=== PATIENT | male | born 1955 | race Two or more races ===

== ENCOUNTER 2024-10-28 03:19 | Inpatient (IN) | payer MEDICARE ==
--- NOTE | 2024-10-28 04:08 | ED ---
General Adult HPI - General Chief complaint: Chest Pain Stated complaint: Chest Pain Time Seen by Provider: 10/28/24 03:28 Source: patient, RN notes reviewed, old records reviewed Mode of arrival: ambulatory Limitations: no limitations - History of Present Illness Initial comments: 68-year-old male presenting for evaluation of chest pain. Patient has had exertional chest pain over the past several days. This morning the pain woke him from sleep. He describes this as a central chest tightness. No associated vomiting or diaphoresis. No prior history of CAD. Patient is a diabetic with history of hypertension. - Related Data Allergies Allergy/AdvReac Type Severity Reaction Status Date / Time No Known Allergies Allergy Verified 10/28/24 03:32 Review of Systems ROS Statement: Those systems with pertinent positive or pertinent negative responses have been documented in the HPI. ROS Other: All systems not noted in ROS Statement are negative. Past Medical History Past Medical History: Diabetes Mellitus History of Any Multi-Drug Resistant Organisms: None Reported Past Surgical History: No Surgical Hx Reported Past Psychological History: No Psychological Hx Reported Smoking Status: Never smoker Past Alcohol Use History: Occasional Past Drug Use History: None Reported General Exam Limitations: no limitations General appearance: alert, in no apparent distress Head exam: Present: atraumatic, normocephalic Eye exam: Present: normal appearance, PERRL ENT exam: Present: normal exam Neck exam: Present: normal inspection. Absent: tenderness, meningismus Respiratory exam: Present: normal lung sounds bilaterally. Absent: respiratory distress, wheezes Cardiovascular Exam: Present: regular rate, normal rhythm GI/Abdominal exam: Present: soft. Absent: distended, tenderness Extremities exam: Present: normal inspection Neurological exam: Present: alert, oriented X3 Psychiatric exam: Present: normal affect, normal mood Skin exam: Present: warm, dry, intact. Absent: cyanosis, diaphoretic Course Vital Signs 10/28/24 03:26 Temperature 97.9 F Pulse Rate 66 Respiratory 18 Rate Blood Pressure 120/64 O2 Sat by Pulse 100 Oximetry Medical Decision Making - Medical Decision Making Was pt. sent in by a medical professional or institution (, PA, BAND NAILER, urgent care, hospital, or [place] [facility] [place] facility...) When possible be specific @ -No Did you speak to anyone other than the patient for history (EMS, parent, family, police, friend...)? What history was obtained from this source @ -No Did you review nursing and triage notes (agree or disagree)? Why? @ -I reviewed and agree with nursing and triage notes Were old charts reviewed (outside hosp., previous admission, EMS record, old EKG, old radiological studies, urgent care reports/EKG's, [place] [facility] facility records)? Report findings @ -No old charts were reviewed Differential Chest Pain: Stable Angina, Unstable Angina, STEMI, NSTEMI Aortic Dissection, Pneumothorax, Musculoskeletal, Esophageal Spasm GERD, Cholecystitis, Pancreatitis, Zoster, this is not meant to be an all-inclusive list. EKG interpreted by me (3pts min.). @ -Sinus rhythm rate of [address] segment elevation, ST segment depression and T wave inversion in aVL. [place] interval 193, QRS duration 102, QTc 427 X-rays interpreted by me (1pt min.). @Chest x-ray negative for acute cardiopulmonary findings. CT interpreted by me (1pt min.). @ -None done U/S interpreted by me (1pt. min.). @ -None done What testing was considered but not performed or refused? (CT, X-rays, U/S, labs)? Why? @ -None What meds were considered but not given or refused? Why? @ -None Did you discuss the management of the patient with other professionals (professionals i.e. , PA, BAND NAILER, lab, RT, psych nurse, social service liaison, technical service rep, teacher, special weapons unit officer, case planner)? Give summary @EM, Dr. Alvarado, and cardiology Dr. Hernadez Was smoking cessation discussed for >3mins.? @ -No Was critical care preformed (if so, how long)? @ -[Yes, 35 minutes Were there social determinants of health that impacted care today? How? (Homelessness, low income, unemployed, alcoholism, drug addiction, transportation, low edu. Level, literacy, decrease access to med. care, shelter, rehab)? @ -No Was there de-escalation of care discussed even if they declined (Discuss DNR or withdrawal of care, Hospice)? DNR status @ -No What co-morbidities impacted this encounter? (DM, HTN, Smoking, COPD, CAD, Cancer, CVA, ARF, Chemo, Hep., AIDS, mental health diagnosis, sleep apnea, morbid obesity)? @ -Diabetes Was patient admitted / discharged? Hospital course, mention meds given and route, prescriptions, significant lab abnormalities, going to OR and other pertinent info. @ -68-year-old male with history of diabetes presenting with exertional chest pain over the past several days and chest pain that woke the patient from sleep this evening. Pain is typical in nature. EKG is negative for ST segment elevation. Chest x-ray is clear. Patient has a normal CBC, normal CMP, initial troponin is 1. Patient's symptoms are consistent with non-ST segment elevated AK. Patient is started on heparin, given aspirin in the emergency department. Admitted to internal medicine with cardiology on consult. Undiagnosed new problem with uncertain prognosis? @ -No Drug Therapy requiring intensive monitoring for toxicity (Heparin, Nitro, Insulin, Cardizem)? @ -No Were any procedures done? @ -No Diagnosis/symptom? @NSTEMI Acute, or Chronic, or Acute on Chronic? @ -Acute Uncomplicated (without systemic symptoms) or Complicated (systemic symptoms)? @ -[Complicated Side effects of treatment? @ -No Exacerbation, Progression, or Severe Exacerbation? @ -No Poses a threat to life or bodily function? How? (Chest pain, USA, AK, pneumonia, PE, COPD, DKA, ARF, appy, cholecystitis, CVA, Diverticulitis, Homicidal, Suicidal, threat to staff... and all critical care pts) @ -Yes, ACS - Lab Data Result diagrams: 10/28/24 03:56 10/28/24 03:56 Lab Results 10/28/24 10/28/24 10/28/24 Range/Units 03:56 03:56 03:56 WBC 9.50 (4.50-10.00) 10*3/uL RBC 4.87 (4.40-5.60) 10*6/uL Hgb 13.9 (13.0-17.0) g/dL Hct 43.0 (39.6-50.0) % MCV 88.3 (80.0-97.0) fL MCH 28.5 (27.0-32.0) pg MCHC 32.3 (32.0-37.0) g/dL Plt Count 233 (140-440) 10*3/uL MPV 10.4 (9.5-12.2) fL Immature Gran % (Auto) 0.3 % Neutrophils % 65.0 % Lymphocytes % 20.8 % Monocytes % 6.6 % Eosinophils % 7.1 % Basophils % 0.2 % Immature Gran # 0.03 (0.00-0.04) 10*3/uL Neutrophils # 6.17 (1.80-7.70) 10*3/uL Lymphocytes # 1.98 (0.90-5.00) 10*3/uL Monocytes # 0.63 (0.20-1.00) 10*3/uL Eosinophils # 0.67 H (0.04-0.35) 10*3/uL Basophils # 0.02 (0.00-0.10) 10*3/uL PT 10.7 (10.0-12.5) sec INR 1.0 (<1.2) APTT 23.7 (22.0-30.0) sec Sodium 141 (137-145) mmol/L Potassium 4.2 (3.5-5.1) mmol/L Chloride 106 (98-107) mmol/L Carbon Dioxide 22 (22-30) mmol/L Anion Gap 13 mmol/L BUN 12 (9-20) mg/dL Creatinine 0.62 L (0.66-1.25) mg/dL Est GFR (CKD-EPI)AfAm >90 (>60 ml/min/1.73 sqM) Est GFR (CKD-EPI)NonAf >90 (>60 ml/min/1.73 sqM) Glucose 148 H (74-99) mg/dL Calcium 9.3 (8.4-10.2) mg/dL Magnesium 1.9 (1.6-2.3) mg/dL Total Bilirubin 0.6 (0.2-1.3) mg/dL AST 37 (17-59) U/L ALT 24 (4-49) U/L Alkaline Phosphatase 115 (38-126) U/L Troponin I (0.000-0.034) ng/mL Total Protein 7.2 (6.3-8.2) g/dL Albumin 4.2 (3.5-5.0) g/dL 10/28/24 Range/Units 03:56 WBC (4.50-10.00) 10*3/uL RBC (4.40-5.60) 10*6/uL Hgb (13.0-17.0) g/dL Hct (39.6-50.0) % MCV (80.0-97.0) fL MCH (27.0-32.0) pg MCHC (32.0-37.0) g/dL Plt Count (140-440) 10*3/uL MPV (9.5-12.2) fL Immature Gran % (Auto) % Neutrophils % % Lymphocytes % % Monocytes % % Eosinophils % % Basophils % % Immature Gran # (0.00-0.04) 10*3/uL Neutrophils # (1.80-7.70) 10*3/uL Lymphocytes # (0.90-5.00) 10*3/uL Monocytes # (0.20-1.00) 10*3/uL Eosinophils # (0.04-0.35) 10*3/uL Basophils # (0.00-0.10) 10*3/uL PT (10.0-12.5) sec INR (<1.2) APTT (22.0-30.0) sec Sodium (137-145) mmol/L Potassium (3.5-5.1) mmol/L Chloride (98-107) mmol/L Carbon Dioxide (22-30) mmol/L Anion Gap mmol/L BUN (9-20) mg/dL Creatinine (0.66-1.25) mg/dL Est GFR (CKD-EPI)AfAm (>60 ml/min/1.73 sqM) Est GFR (CKD-EPI)NonAf (>60 ml/min/1.73 sqM) Glucose (74-99) mg/dL Calcium (8.4-10.2) mg/dL Magnesium (1.6-2.3) mg/dL Total Bilirubin (0.2-1.3) mg/dL AST (17-59) U/L ALT (4-49) U/L Alkaline Phosphatase (38-126) U/L Troponin I 1.070 H* (0.000-0.034) ng/mL Total Protein (6.3-8.2) g/dL Albumin (3.5-5.0) g/dL Critical Care Time Critical Care Time: Yes Total Critical Care Time: 35 Disposition Clinical Impression: Acute non-ST elevation myocardial infarction (NSTEMI) Disposition: ADMITTED IP TO THIS HOSP Condition: Stable Is patient prescribed a controlled substance at d/c from ED?: No Referrals: None,Stated [Primary Care Provider] - 1-2 days Time of Disposition: 06:41
[2024-10-28 04:33] LABS: Basophils # (A) 0.02 10*3/uL (0.00-0.10); Basophils % (A) 0.2 %; Eosinophils # (A) 0.67 10*3/uL (0.04-0.35); Eosinophils % (A) 7.1 %; HCT 43.0 % (39.6-50.0); HGB 13.9 g/dL (13.0-17.0); Lymphocytes # (A) 1.98 10*3/uL (0.90-5.00); Lymphocytes % (A) 20.8 %; MCH 28.5 pg (27.0-32.0); MCHC 32.3 g/dL (32.0-37.0); MCV 88.3 fL (80.0-97.0); Monocytes # (A) 0.63 10*3/uL (0.20-1.00); Monocytes % (A) 6.6 %; Neutrophils # (A) 6.17 10*3/uL (1.80-7.70); Neutrophils % (A) 65.0 %; Platelet Count 233 10*3/uL (140-440); RBC 4.87 10*6/uL (4.40-5.60); RDW 13.2 % (11.5-14.5); WBC 9.50 10*3/uL (4.50-10.00)
[2024-10-28 04:41] LABS: ALT 24 U/L (4-49); AST 37 U/L (17-59); African American GFR (CKD) >90 (>60 ml/min/1.73 sqM); Albumin 4.2 g/dL (3.5-5.0); Alkaline Phosphatase 115 U/L (38-126); Anion Gap 13 mmol/L; Blood Urea Nitrogen 12 mg/dL (9-20); Calcium 9.3 mg/dL (8.4-10.2); Carbon Dioxide 22 mmol/L (22-30); Chloride 106 mmol/L (98-107); Glucose 148 mg/dL (74-99); Magnesium 1.9 mg/dL (1.6-2.3); Non-African American GFR(CKD) >90 (>60 ml/min/1.73 sqM); Potassium 4.2 mmol/L (3.5-5.1); Sodium 141 mmol/L (137-145); Total Protein 7.2 g/dL (6.3-8.2)
--- NOTE | 2024-10-28 05:13 | XR ---
EXAM: XR Chest, 2 Views CLINICAL HISTORY: ITS.REASON XR Reason: Chest Pain TECHNIQUE: Frontal and lateral views of the chest. COMPARISON: No relevant prior studies available. FINDINGS: Lungs: Unremarkable. No consolidation. Pleural space: Unremarkable. No pneumothorax. Heart: Unremarkable. No cardiomegaly. Mediastinum: Unremarkable. Normal mediastinal contour. Bones/joints: Degenerative changes are seen within the left shoulder and spine. No acute fracture. IMPRESSION: No acute findings in the chest.
[2024-10-28 05:14] LABS: INR 1.0 (<1.2); Partial Thromboplastin Time 23.7 sec (22.0-30.0); Prothrombin Time 10.7 sec (10.0-12.5)
[2024-10-28] MEDS ORDERED: HEPARIN SODIUM 1,000 UN/ML (10ML VL) IV PRN (06:06)
[2024-10-28] MEDS: HEPARIN SODIUM 1,000 UN/ML (10ML VL) IV ONE (06:20)
[2024-10-28] MEDS: HEPARIN SODIUM,PORCINE/D5W 25,000 UNIT in EMPTY BAG 1 BAG IV SCH (06:21)
[2024-10-28] MEDS: ASPIRIN 325 MG TAB PO STA ×2 (06:22→07:57)
[2024-10-28] MEDS ORDERED: NITROGLYCERIN SL TABS 0.4 MG TAB SUBLINGUAL PRN ×2 (06:38→07:38)
[2024-10-28] MEDS ORDERED: ALPRAZolam 0.5 MG TAB PO PRN (07:38)
[2024-10-28] MEDS ORDERED: ALPRAZolam 0.25 MG TAB PO PRN (07:38)
[2024-10-28] MEDS: ATORVASTATIN 80 MG TAB PO STA (07:57)
[2024-10-28] MEDS: ATORVASTATIN 80 MG TAB PO SCH (08:01)
[2024-10-28] MEDS: NITROGLYCERIN OINT 1 INCH/GM PACKET TOPICAL SCH (08:01)
[2024-10-28 10:14] LABS: Glucose,Whole Blood 116 mg/dL (70-110)
[2024-10-28] MEDS: SODIUM CHLORIDE 0.9% 1,000 ML IV ONE (10:50)
[2024-10-28] MEDS: HEPARIN SODIUM,PORCINE 10,000 UNIT in SODIUM CHLORIDE 0.9% 1,000 ML IRRIGATION PRN (10:50)
[2024-10-28] MEDS: HEPARIN SODIUM,PORCINE (1 ML) 2,500 UNIT in SODIUM CHLORIDE 0.9% 250 ML IRRIGATION PRN (10:50)
--- NOTE | 2024-10-28 10:55 | P.CRDCN ---
History of Present Illness Consult date: 10/28/24 Reason for Consult (text): NSTEMI History of present illness: This is a 68-year-old male patient with no previous cardiac history and does not follow with a director instrumentation. He has a past medical history of diabetes and hyperlipidemia. We have been asked to evaluate the patient for NSTEMI. Patient states that he has been having chest pain when he exerts himself for the past 2 days. It became worse yesterday and he decided to come into the hospital for evaluation. He has been started on heparin drip and found to have elevated troponins. Recommendations for cardiac catheterization have been discussed with the patient and he is agreeable to move forward today. Blood pressure 131/73, heart rate 68, pulse ox 99% on room air. Patient is seen today in the emergency center waiting for a bed on the cardiac stepdown unit. -EKG: Sinus rhythm with T wave inversions in I and aVL -Chest x-ray: No acute process. -Laboratory studies: Troponin 1.07, 1.19, creatinine 0.62, potassium 4.2. CBC unremarkable. -Home cardiac medications: No medications are listed. Review Of Systems: At the time of my exam: CONSTITUTIONAL: Denies fever or chills. HEENT: Denies blurred vision, vision changes, or eye pain. Denies hemoptysis CARDIOVASCULAR: Denies chest pain. Denies orthopnea. Denies PND. Denies palpitations RESPIRATORY: Denies shortness of breath. GASTROINTESTINAL: Denies abdominal pain. Denies nausea or vomiting. HEMATOLOGIC: Denies bleeding disorders. GENITOURINARY: Denies any blood in urine. SKIN: Denies puritis. Denies rash. Physical examination: Gen: This is a 68-year-old male in no acute distress VS: reviewed HEENT: Head is atraumatic, normocephalic. Pupils equal, round. Sclerae is anicteric. NECK: Supple. No JVD. LUNGS: Clear to auscultation. No wheezes or rhonchi. No intercostal retractions. HEART: Regular rate and rhythm. No murmur. ABDOMEN: Soft No tenderness. EXTREMITIES: No pedal edema. No calf tenderness. NEUROLOGICAL: Patient is awake, alert and oriented x3. Assessment: NSTEMI Diabetes Hyperlipidemia Plan: Start patient on aspirin 81 mg daily, atorvastatin 80 mg daily Continue patient on heparin drip Start patient on Nitro-Bid ointment 1 inch every 8 hours Obtain lipid panel Obtain 2-D echocardiogram and Doppler study to assess cardiac structure and function Further recommendations to follow based upon clinical course Thank you kindly for this consultation. Nurse practitioner note has been reviewed, I agree with documented findings and plan of care. Patient was seen and examined. Past Medical History Past Medical History: Diabetes Mellitus History of Any Multi-Drug Resistant Organisms: None Reported Past Surgical History: No Surgical Hx Reported Past Psychological History: No Psychological Hx Reported Smoking Status: Never smoker Past Alcohol Use History: Occasional Past Drug Use History: None Reported Medications and Allergies Allergies Allergy/AdvReac Type Severity Reaction Status Date / Time No Known Allergies Allergy Verified 10/28/24 03:32 Physical Exam Vitals: Vital Signs Temp Pulse Resp BP Pulse Ox 10/28/24 06:58 64 18 137/84 98 10/28/24 03:26 97.9 F 66 18 120/64 100 Intake and Output 10/27/24 10/28/24 10/28/24 22:59 06:59 14:59 Other: Weight 89.539 kg Results 10/28/24 03:56 10/28/24 03:56 Cardiac Enzymes 10/28/24 10/28/24 Range/Units 03:56 03:56 AST 37 (17-59) U/L Troponin I 1.070 H* (0.000-0.034) ng/mL Coagulation 10/28/24 Range/Units 03:56 PT 10.7 (10.0-12.5) sec APTT 23.7 (22.0-30.0) sec CBC 10/28/24 Range/Units 03:56 WBC 9.50 (4.50-10.00) 10*3/uL RBC 4.87 (4.40-5.60) 10*6/uL Hgb 13.9 (13.0-17.0) g/dL Hct 43.0 (39.6-50.0) % Plt Count 233 (140-440) 10*3/uL Comprehensive Metabolic Panel 10/28/24 Range/Units 03:56 Sodium 141 (137-145) mmol/L Potassium 4.2 (3.5-5.1) mmol/L Chloride 106 (98-107) mmol/L Carbon Dioxide 22 (22-30) mmol/L BUN 12 (9-20) mg/dL Creatinine 0.62 L (0.66-1.25) mg/dL Glucose 148 H (74-99) mg/dL Calcium 9.3 (8.4-10.2) mg/dL AST 37 (17-59) U/L ALT 24 (4-49) U/L Alkaline Phosphatase 115 (38-126) U/L Total Protein 7.2 (6.3-8.2) g/dL Albumin 4.2 (3.5-5.0) g/dL Current Medications Generic Name Dose Route Start Last Admin Trade Name Freq PRN Reason Stop Dose Admin Aspirin 325 mg 10/29/24 09:00 Aspirin 325 Mg Tab PO DAILY [facility] Atorvastatin Calcium 80 mg 10/28/24 09:00 Atorvastatin 80 Mg Tab PO DAILY [facility] Heparin Sodium (Porcine) 0 unit 10/28/24 06:06 Heparin Sodium 1,000 Un/Ml (10ml Vl) IV PER PROTOCOL PRN Low PTT Protocol Heparin Sodium/Dextrose 25,000 250 mls @ 10 mls/hr 10/28/24 06:15 10/28/24 06:21 unit/ IV Solution IV 11.168 unit/kg/hr .Q24H NHUNG 10 mls/hr Administration Protocol 11.168 UNIT/KG/HR Nitroglycerin 0.4 mg 10/28/24 06:38 Nitroglycerin Sl Tabs 0.4 Mg Tab SUBLINGUAL Q5M PRN Chest Pain Nitroglycerin 1 inch 10/28/24 08:00 Nitroglycerin Oint 1 Inch/Gm Packet TOPICAL Q8HR [facility] Intake and Output 10/27/24 10/28/24 10/28/24 22:59 06:59 14:59 Other: Weight 89.539 kg 10/28/24 03:56 10/28/24 03:56
[2024-10-28] MEDS: fentaNYL (PF) 50 MCG/ML 2 ML AMP IVP ONE (11:05)
[2024-10-28] MEDS: MIDAZOLAM 2 MG/2 ML VIAL IVP ONE (11:05)
[2024-10-28] MEDS: LIDOCAINE 1% INJ 10MG/ML (20 ML MDV) SQ ONE (11:10)
[2024-10-28] MEDS: VERAPAMIL SYRINGE (5 MG/10 ML) INTRAARTER ONE (11:11)
[2024-10-28] MEDS: HEPARIN SODIUM 1,000 UN/ML (10ML VL) IVP ONE (11:17)
[2024-10-28] MEDS: IOPAMIDOL-370 100ML BTL INJ ONE (11:50)
--- NOTE | 2024-10-28 12:26 | CC ---
CARDIAC CATHETERIZATION REPORT INDICATION: [id number] elevation AR. PROCEDURE NOTE: After obtaining informed consent, left heart catheterization and coronary angiogram were performed via the right radial artery using standard Melanie catheters. The patient tolerated the procedure well without any obvious immediate complications, received moderate conscious sedation. Total sedation time was 15 minutes. FINDINGS: 1. Hemodynamics: Left ventricular end-diastolic pressure is 15 mm. There is no significant gradient across the aortic valve. 2. Left Ventriculogram: Left ventriculogram is not performed. 3. Angiographic Data: a.Right Coronary Artery: Right coronary artery is a large dominant vessel, shows mild nonobstructive disease. b.Left main coronary artery appears calcified, but is free of significant stenosis, divides into left anterior descending coronary artery and circumflex coronary artery. LAD shows a focal 90% stenosis in the proximal portion. c.Circumflex coronary artery shows moderate diffuse disease with multiple segmental lesions of it being 70% stenosed. There is a proximal mid and distal lesion. CONCLUSIONS: Severe two-vessel coronary artery disease as described above. PLAN: I am going to review angiographic data with Dr. Parada, the on-call scrap charger, and decide on whether to proceed with catheter-based revascularization or consider surgery. MMODL / IJN: [id number] /
--- NOTE | 2024-10-28 12:54 | CA ---
Transthoracic Echo Report Name: Ricci Rowe Age: 68 Gender: M : 1955 Exam Date: 10/28/2024 08:59 Exam Location: [facility] Ht (in): 67 Wt (lb): 197 Ordering Physician: Sneha Hall Attending/Referring Phys: [id number], Rafael Compliance Nurse Mirian Espinoza RDCS Procedure CPT: Indications: lvf, NSTEMI Cardiac Hx: Technical Quality: Contrast 1: Definity Total Dose (mL): 2 Contrast 2: Total Dose (mL): MEASUREMENTS (Male / Female) Normal Values 2D ECHO LV Diastolic Diameter PLAX 4.3 cm 4.2 - 5.9 / 3.9 - 5.3 cm LV Systolic Diameter PLAX 3.1 cm IVS Diastolic Thickness 1.6 cm 0.6 - 1.0 / 0.6 - 0.9 cm LVPW Diastolic Thickness 1.4 cm 0.6 - 1.0 / 0.6 - 0.9 cm LV Relative Wall Thickness 0.7 RV Internal Dim ED PLAX 3.5 cm LA Systolic Diameter LX 3.7 cm 3.0 - 4.0 / 2.7 - 3.8 cm LV Diastolic Volume MOD BP 98.5 cm??? 67 - 155 / 56 - 104 cm??? LV Systolic Volume MOD BP 51.3 cm??? 22 - 58 / 19 - 49 cm??? LV Ejection Fraction MOD BP 48.0 % >= 55 % LV Cardiac Index MOD BP 1475.3 cm???/min???m??? LV Diastolic Volume MOD 4C 88.5 cm??? LV Systolic Volume MOD 4C 46.0 cm??? LV Ejection Fraction MOD 4C 48.0 % LV Cardiac Index MOD 4C 1326.6 cm???/min???m??? LV Diastolic Length 4C 7.4 cm LV Systolic Length 4C 7.9 cm LV Diastolic Volume MOD 2C 106.2 cm??? LV Systolic Volume MOD 2C 53.2 cm??? LV Ejection Fraction MOD 2C 49.9 % LV Cardiac Index MOD 2C 1653.2 cm???/min???m??? LV Diastolic Length 2C 7.7 cm LV Systolic Length 2C 7.2 cm DOPPLER AV Peak Velocity 112.8 cm/s AV Peak Gradient 5.1 mmHg Mitral E Point Velocity 81.3 cm/s Mitral A Point Velocity 119.0 cm/s Mitral E to A Ratio 0.7 MV E' Velocity 4.4 cm/s Mitral E to MV E' Ratio 18.4 TR Peak Velocity 216.0 cm/s TR Peak Gradient 18.7 mmHg Right Ventricular Systolic Press 28.7 mmHg FINDINGS Left Ventricle Left ventricular ejection fraction is estimated at 35-40 %. Left ventricular cavity size normal. Moderate concentric left ventricular hypertrophy. Apical and distal anterior, anterolateral and anteroseptal hypokinesis Right Ventricle Normal right ventricular size. Right ventricular systolic pressure within normal limits. Right Atrium Normal right atrial size. No right atrial thrombus or mass seen. Left Atrium Normal left atrial size. Left atrial size at the upper limits of normal. Mitral Valve Structurally normal mitral valve. No evidence for mitral valve prolapse. No mitral stenosis. Mild mitral regurgitation. Aortic Valve Trileaflet aortic valve. No aortic valve stenosis or regurgitation. Tricuspid Valve Structurally normal tricuspid valve. Mild tricuspid regurgitation. Pulmonic Valve Structurally normal pulmonic valve. No pulmonic regurgitation. Pericardium No pericardial effusion. Aorta Normal size aortic root and proximal ascending aorta. CONCLUSIONS 1. Moderately impaired left ventricular systolic function with segmental wall motion abnormality 2. Mild mitral and tricuspid regurgitation Definity ECHO contrast used for improved visualization of the endocardial borders (inadequate visualization of two or more contiguous segments). Previewed by: Dr. Kunal Vargas MD (Electronically Signed) Final Date: 28 October 2024 12:53
--- NOTE | 2024-10-28 15:19 | P.HPIM ---
History of Present Illness H&P Date: 10/28/24 History of present illness; 68-year-old gentleman with past medical history significant for diabetes mellitus, hypertension presented the ER because of chest pain. Patient stated that he was all right a couple of days back when he started having chest pain that was brought about by exertion, central location, pressure-like, nonradiating, aggravated by exertion and relieved by rest. There was no complaint of orthopnea or PND. There was no complaint of shortness of breath at that time. There was no episode of diaphoresis during this episode of chest pain. Patient denies any palpitation. Denies any nausea, vomiting abdominal pain. Patient denies any complaint of dizziness. There is no complaint of headache. Because of this exertional chest pain patient came to the ER Initial lab work done in the ER showed WBC 9.5, hemoglobin 13.9, platelet count 233, sodium 141, potassium 4.2, BUN 12, creatinine 0.62, glucose 148, troponin 1.070, EKG done in the ER showed heart rate of67 , no ST segment elevation or depression seen, T wave inversion seen in 1 and aVL, bifid T waves in V2 and V3 Chest x-ray done in the ER showed no acute cardiopulmonary process Patient admitted to internal medicine service REVIEW OF SYSTEMS: CONSTITUTIONAL: No fever, no malaise, no fatigue. HEENT: No recent visual problems or hearing problems. Denied any sore throat. CARDIOVASCULAR: Mentioned above PULMONARY: No shortness of breath, no cough, no hemoptysis. GASTROINTESTINAL: No diarrhea, no nausea, no vomiting, no abdominal pain. NEUROLOGICAL: No headaches, no weakness, no numbness. HEMATOLOGICAL: Denies any bleeding or petechiae. GENITOURINARY: Denies any burning micturition, frequency, or urgency. MUSCULOSKELETAL/RHEUMATOLOGICAL: Denies any joint pain, swelling, or any muscle pain. ENDOCRINE: Denies any polyuria or polydipsia. The rest of the 14-point review of systems is negative. PHYSICAL EXAMINATION: GENERAL: The patient is alert and oriented x3, not in any acute distress. Well developed, well nourished. HEENT: Pupils are round and equally reacting to light. EOMI. No scleral icterus. No conjunctival pallor. Normocephalic, atraumatic. No pharyngeal erythema. No thyromegaly. CARDIOVASCULAR: S1 and S2 present. No murmurs, rubs, or gallops. PULMONARY: Chest is clear to auscultation, no wheezing or crackles. ABDOMEN: Soft, nontender, nondistended, normoactive bowel sounds. No palpable organomegaly. MUSCULOSKELETAL: No joint swelling or deformity. EXTREMITIES: No cyanosis, clubbing, or pedal edema. NEUROLOGICAL: Gross neurological examination did not reveal any focal deficits. SKIN: No rashes. Assessment and plan NSTEMI Diabetes mellitus Hypertension Monitor vital signs Monitor CBC Monitor CMP Continue telemetry monitoring Troponin Serial EKG Ordered 2D echo Ordered pharmacy dose heparin Start aspirin, Lipitor Resume home meds Consult cardiology Labs and medication were reviewed.. Continue same treatment. Continue with symptomatic treatment. Resume home medication. Monitor labs and vitals. DVT and GI prophylaxis. Further recommendations as per clinical course of the patient Dictation was produced using trend.ly dictation software. please excuse any grammatical, word or spelling errors. Past Medical History Past Medical History: Diabetes Mellitus History of Any Multi-Drug Resistant Organisms: None Reported Past Surgical History: No Surgical Hx Reported Past Psychological History: No Psychological Hx Reported Smoking Status: Never smoker Past Alcohol Use History: Occasional Past Drug Use History: None Reported Medications and Allergies Allergies Allergy/AdvReac Type Severity Reaction Status Date / Time No Known Allergies Allergy Verified 10/28/24 03:32 Physical Exam Vitals: Vital Signs Temp Pulse Resp BP Pulse Ox 10/28/24 10:09 97.8 F 68 14 131/73 99 10/28/24 09:00 66 18 110/60 98 10/28/24 08:04 64 18 132/81 99 10/28/24 06:58 64 18 137/84 98 10/28/24 03:26 97.9 F 66 18 120/64 100 Intake and Output 10/28/24 10/28/24 10/28/24 06:59 14:59 22:59 Intake Total 336.667 Balance 336.667 Intake: IV 300 Intake, IV Titration 36.667 Amount Heparin Sodium,Porcine/ 36.667 D5w 25,000 unit In Empty Bag 1 bag @ 11.168 UNIT/ KG/HR 10 mls/hr IV .Q24H [facility] Rx#:[id number] Other: Weight 89.539 kg Results CBC & Chem 7: 10/28/24 03:56 10/28/24 03:56 Labs: Abnormal Lab Results - Last 24 Hours (Table) 10/28/24 10/28/24 10/28/24 Range/Units 03:56 03:56 03:56 Eosinophils # 0.67 H (0.04-0.35) 10*3/uL Creatinine 0.62 L (0.66-1.25) mg/dL Glucose 148 H (74-99) mg/dL POC Glucose (mg/dL) (70-110) mg/dL Troponin I 1.070 H* (0.000-0.034) ng/mL 10/28/24 10/28/24 10/28/24 Range/Units 07:33 10:12 10:30 Eosinophils # (0.04-0.35) 10*3/uL Creatinine (0.66-1.25) mg/dL Glucose (74-99) mg/dL POC Glucose (mg/dL) 116 H (70-110) mg/dL Troponin I 1.190 H* 1.300 H* (0.000-0.034) ng/mL
[2024-10-29 03:48] LABS: Basophils # (A) 0.03 10*3/uL (0.00-0.10); Basophils % (A) 0.3 %; Eosinophils # (A) 0.62 10*3/uL (0.04-0.35); Eosinophils % (A) 7.2 %; HCT 39.6 % (39.6-50.0); HGB 12.4 g/dL (13.0-17.0); Lymphocytes # (A) 1.59 10*3/uL (0.90-5.00); Lymphocytes % (A) 18.5 %; MCH 28.0 pg (27.0-32.0); MCHC 31.3 g/dL (32.0-37.0); MCV 89.4 fL (80.0-97.0); Monocytes # (A) 0.41 10*3/uL (0.20-1.00); Monocytes % (A) 4.8 %; Neutrophils # (A) 5.93 10*3/uL (1.80-7.70); Neutrophils % (A) 68.9 %; Platelet Count 221 10*3/uL (140-440); RBC 4.43 10*6/uL (4.40-5.60); RDW 13.5 % (11.5-14.5); WBC 8.61 10*3/uL (4.50-10.00)
[2024-10-29 04:00] LABS: INR 1.0 (<1.2); Partial Thromboplastin Time 44.3 sec (22.0-30.0); Prothrombin Time 11.1 sec (10.0-12.5)
[2024-10-29 04:11] LABS: ALT 19 U/L (4-49); AST 32 U/L (17-59); African American GFR (CKD) >90 (>60 ml/min/1.73 sqM); Albumin 3.5 g/dL (3.5-5.0); Alkaline Phosphatase 100 U/L (38-126); Anion Gap 8 mmol/L; Blood Urea Nitrogen 9 mg/dL (9-20); Calcium 8.6 mg/dL (8.4-10.2); Carbon Dioxide 21 mmol/L (22-30); Chloride 109 mmol/L (98-107); Glucose 122 mg/dL (74-99); Non-African American GFR(CKD) >90 (>60 ml/min/1.73 sqM); Potassium 4.0 mmol/L (3.5-5.1); Sodium 138 mmol/L (137-145); Total Protein 6.1 g/dL (6.3-8.2)
[2024-10-29] MEDS: ASPIRIN 325 MG TAB PO STA (05:14)
[2024-10-29] MEDS ORDERED: HEPARIN SODIUM,PORCINE 10,000 UNIT in SODIUM CHLORIDE 0.9% 1,000 ML IRRIGATION PRN (07:00)
[2024-10-29] MEDS ORDERED: HEPARIN SODIUM,PORCINE (1 ML) 2,500 UNIT in SODIUM CHLORIDE 0.9% 250 ML IRRIGATION PRN (07:00)
[2024-10-29] MEDS: fentaNYL (PF) 50 MCG/1 ML VIAL IVP ONE ×2 (08:05→09:17)
[2024-10-29] MEDS: MIDAZOLAM 2 MG/2 ML VIAL IVP ONE (08:05)
[2024-10-29] MEDS: IV FLUID CONTINUATION 1,000 ML IV ONE (08:09)
[2024-10-29] MEDS: LIDOCAINE 1% INJ 10MG/ML (20 ML MDV) SQ ONE (08:10)
[2024-10-29] MEDS: VERAPAMIL SYRINGE (5 MG/10 ML) INTRAARTER ONE (08:11)
[2024-10-29] MEDS: HEPARIN SODIUM 1,000 UN/ML (10ML VL) IVP ONE ×3 (08:17→09:35)
[2024-10-29] MEDS: TICAGRELOR 90 MG TAB PO ONE (08:35)
[2024-10-29] MEDS: SODIUM CHLORIDE 0.9% 1,000 ML IV ONE (08:42)
[2024-10-29 08:44] LABS: Cholesterol 106.00 mg/dL (0.00-200.00); HDL Cholesterol 27.50 mg/dL (40.00-60.00); LDL Cholesterol,Calculated 60.4 mg/dL (0.0-131.0); Triglycerides 90.30 mg/dL (0.00-149.00); VLDL Calculation 18.06 mg/dL (5.00-40.00)
[2024-10-29] MEDS ORDERED: ASPIRIN 325 MG TAB PO SCH (09:00)
[2024-10-29] MEDS: NITROGLYCERIN 1000MCG/10ML SYRINGE INTRACORON ONE (09:01)
[2024-10-29] MEDS: niCARdipine Syringe (1,000 mcg/10 mL) INTRACORON ONE (09:02)
[2024-10-29] MEDS: PHENYLEPHRINE-0.9% NACL SYG 1,000 MCG/10 ML SYRINGE IVP ONE (09:02)
[2024-10-29] MEDS: IOPAMIDOL-370 100ML BTL INJ ONE ×2 (09:12→09:30)
[2024-10-29] MEDS ORDERED: ZOLPIDEM 5 MG TAB PO PRN (09:35)
[2024-10-29] MEDS ORDERED: NITROGLYCERIN SL TABS 0.4 MG TAB SUBLINGUAL PRN (09:35)
[2024-10-29] MEDS ORDERED: ATROPINE SULFATE 0.1 MG/ML 10ML SYRINGE IV PRN (09:35)
[2024-10-29] MEDS ORDERED: MAG HYDROX/AL HYDROX/SIMETH 30 ML CUP PO PRN (09:35)
[2024-10-29] MEDS ORDERED: RX INFO: IV CONTRAST WAS GIVEN 1 EACH MISC MISCELLANE PRN (09:35)
--- NOTE | 2024-10-29 09:42 | P.PCN ---
Date of Procedure: 10/29/24 Operative Findings: PERCUTANEOUS CORONARY INTERVENTION Performing physician Tylor Parada M.D. Procedure Performed: 1. Successful stenting of the mid LAD using 3.0 x 33 mm Xience drug-eluting stent which subsequently postdilated using 4 mm NC balloon with an excellent angiographic results. 2. Adjunctive use of IVUS and IFR 3. Ultrasound-guided access of the right radial artery Indication: Non-STEMI. Please refer to diagnostic heart catheterization was performed by Dr. 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 The right radial artery was cannulated using micropuncture technique under ultrasound guidance the micropuncture wire passed easily then I placed a 6 [place] 11 cm sheath at the right radial artery and gave the patient 2 mg of verapamil intra-arterial and subsequently 5000 units of heparin intravenous with continuous ACT monitoring. Subsequently I decided to do an IFR of the left main. After zeroing the Dobler wire and equalized in between the Dobler wire and guiding catheter Dobler wire the Dobler wire was advanced to the LAD with IFR came to be at 0.38 and subsequently IFR of the left main was performed and came to be nonflow-limiting at. At that point I decided to intervene on the LAD. Predilatation was performed using 2 mm NC balloon before IVUS was performed and showed a diameter in the mid LAD was about 3 mm in diameter and in the proximal LAD was about 4 mm. I wired the LAD using a run-through wire and I pulled the Dobler wire out and subsequently wired the diagonal branch using a run-through wire. Subsequently I deployed 3.0 x 33 mm stent which was postdilated initially 3.5 mm balloon with IVUS was performed showed the stent in the proximal portion was not well-expanded and subsequently 4 mm NC balloon. An angiogram was performed and showed no flow in the diagonal branch. I wired diagonal initially using a run-through wire but then whisper wire. PTCA of the diagonal branch was performed using 1.5 mm balloon and then 2 mm balloon. That was performed after the diagonal branch was rewired and the jailed wire was withdrawn out. After that an angiogram was performed and showed good results with PEYTON-3 flow in both the diagonal and the LAD. I decided to stop at that point. The patient tolerated the procedure very well. We decided to treat the left circumflex medically. Postprocedure Management: 1. Dual antiplatelet therapy using aspirin and Brilinta for 12 months 2. Aggressive cholesterol control 3. Risk factors modification
[2024-10-29 09:58] LABS: Glucose,Whole Blood 128 mg/dL (70-110)
[2024-10-29] MEDS: ASPIRIN 81 MG PO SCH (10:24)
[2024-10-29] MEDS: SODIUM CHLORIDE 0.9% 1,000 ML in EMPTY BAG 1 BAG IV SCH ×2 (10:33)
[2024-10-29] MEDS: HYDROmorphone 0.5 MG/0.5 ML SYRINGE IVP STA (10:53)
[2024-10-29] MEDS: NOREPINEPHRINE 8 MG in SODIUM CHLORIDE 0.9% 250 ML IV SCH (11:30)
[2024-10-29] MEDS ORDERED: HYDROcodone/APAP 5-325MG 1 EACH TAB PO PRN (14:00)
--- NOTE | 2024-10-29 15:15 | P.PN ---
Subjective Progress Note Date: 10/29/24 68-year-old gentleman with past medical history significant for diabetes mellitus, hypertension presented the ER because of chest pain. Patient stated that he was all right a couple of days back when he started having chest pain that was brought about by exertion, central location, pressure-like, nonradia ting, aggravated by exertion and relieved by rest. There was no complaint of orthopnea or PND. There was no complaint of shortness of breath at that time. There was no episode of diaphoresis during this episode of chest pain. Patient denies any palpitation. Denies any nausea, vomiting abdominal pain. Patient denies any complaint of dizziness. There is no complaint of headache. Because of this exertional chest pain patient came to the ER Initial lab work done in the ER showed WBC 9.5, hemoglobin 13.9, platelet count 233, sodium 141, potassium 4.2, BUN 12, creatinine 0.62, glucose 148, troponin 1.070, EKG done in the ER showed heart rate of67 , no ST segment elevation or depression seen, T wave inversion seen in 1 and aVL, bifid T waves in V2 and V3 Chest x-ray done in the ER showed no acute cardiopulmonary process Patient admitted to internal medicine service 10/29. Patient seen examined. Patient underwent cardiac cath Successful stenting of the mid LAD using 3.0 x 33 mm Xience drug-eluting stent which subsequently postdilated using 4 mm NC balloon with an excellent angiographic results. The patient is doing better REVIEW OF SYSTEMS: CONSTITUTIONAL: No fever, no malaise,. CARDIOVASCULAR: No chest pain, no palpitations, no syncope. PULMONARY: No shortness of breath, no cough, GASTROINTESTINAL: No diarrhea, no nausea, no vomiting, no abdominal pain. NEUROLOGICAL: No headaches, no weakness, PHYSICAL EXAMINATION: GENERAL: The patient is alert and oriented x3, not in any acute distress. Well developed, well nourished. HEENT: Pupils are round and equally reacting to light. EOMI. No scleral icterus. No conjunctival pallor. Normocephalic, atraumatic. No pharyngeal erythema. No thyromegaly. CARDIOVASCULAR: S1 and S2 present. No murmurs, rubs, or gallops. PULMONARY: Chest is clear to auscultation, no wheezing or crackles. ABDOMEN: Soft, nontender, nondistended, normoactive bowel sounds. No palpable organomegaly. MUSCULOSKELETAL: No joint swelling or deformity. EXTREMITIES: No cyanosis, clubbing, or pedal edema. NEUROLOGICAL: Gross neurological examination did not reveal any focal deficits. SKIN: No rashes. Assessment and plan NSTEMI Diabetes mellitus Hypertension Monitor vital signs Monitor CBC Monitor CMP Continue telemetry monitoring cardiac cath with Successful stenting of the mid LAD using 3.0 x 33 mm Xience drug-eluting stent Serial EKG Ordered 2D echo Continue aspirin, Lipitor continue Brilinta Cardiology following Labs and medication were reviewed.. Continue same treatment. Continue with symptomatic treatment. Resume home medication. Monitor labs and vitals. DVT and GI prophylaxis. Further recommendations as per clinical course of the patient Dictation was produced using [employer] dictation software. please excuse any grammatical, word or spelling errors. Objective - Vital Signs Vital signs: Vital Signs Temp 98.0 F 10/29/24 03:20 Pulse 65 10/29/24 03:20 Resp 16 10/29/24 03:20 BP 96/60 10/29/24 03:20 Pulse Ox 98 10/29/24 03:20 FiO2 Intake & Output 10/28/24 10/29/24 10/29/24 18:59 06:59 18:59 Intake Total 636.667 66.333 1455 Output Total 350 Balance 636.667 66.333 1105 Weight 89.539 kg Intake: IV 600 975 Sodium Chloride 0.9% 1, 225 000 ml In Empty Bag 1 bag @ 75 mls/hr IV .[id number] NHUNG Rx#:[id number] Intake, IV Titration 36.667 66.333 Amount Heparin Sodium,Porcine/ 36.667 66.333 D5w 25,000 unit In Empty Bag 1 bag @ 11.168 UNIT/ KG/HR 10 mls/hr IV .Q24H NHUNG Rx#:[id number] Oral 0 480 Output: Urine 350 Other: Voiding Method Toilet Urinal # Voids 1 - Labs CBC & Chem 7: 10/29/24 03:29 10/29/24 03:28 Labs: Abnormal Lab Results - Last 24 Hours (Table) 10/29/24 10/29/24 10/29/24 Range/Units 03:28 03:29 03:29 Hgb 12.4 L (13.0-17.0) g/dL MCHC 31.3 L (32.0-37.0) g/dL Eosinophils # 0.62 H (0.04-0.35) 10*3/uL APTT 44.3 H (22.0-30.0) sec Chloride 109 H (98-107) mmol/L Carbon Dioxide 21 L (22-30) mmol/L Creatinine 0.56 L (0.66-1.25) mg/dL Glucose 122 H (74-99) mg/dL POC Glucose (mg/dL) (70-110) mg/dL Total Protein 6.1 L (6.3-8.2) g/dL HDL Cholesterol 27.50 L (40.00-60.00) mg/dL 10/29/24 Range/Units 09:57 Hgb (13.0-17.0) g/dL MCHC (32.0-37.0) g/dL Eosinophils # (0.04-0.35) 10*3/uL APTT (22.0-30.0) sec Chloride (98-107) mmol/L Carbon Dioxide (22-30) mmol/L Creatinine (0.66-1.25) mg/dL Glucose (74-99) mg/dL POC Glucose (mg/dL) 128 H (70-110) mg/dL Total Protein (6.3-8.2) g/dL HDL Cholesterol (40.00-60.00) mg/dL
[2024-10-29 16:01] LABS: Glucose,Whole Blood 171 mg/dL (70-110)
[2024-10-29] MEDS ORDERED: DEXTROSE 50% SYRINGE 50 ML IVP PRN ×2 (18:25)
[2024-10-29 20:24] LABS: Glucose,Whole Blood 236 mg/dL (70-110)
[2024-10-29] MEDS: INSULIN LISPRO (HumaLOG) 100 UNIT/ML 10 mL VL SQ SCH (20:32)
[2024-10-29] MEDS: TICAGRELOR 90 MG TAB PO SCH (20:32)
[2024-10-30 04:22] LABS: HCT 39.3 % (39.6-50.0); HGB 12.6 g/dL (13.0-17.0); MCH 28.9 pg (27.0-32.0); MCHC 32.1 g/dL (32.0-37.0); MCV 90.1 fL (80.0-97.0); Platelet Count 197 10*3/uL (140-440); RBC 4.36 10*6/uL (4.40-5.60); RDW 13.3 % (11.5-14.5); WBC 10.66 10*3/uL (4.50-10.00)
[2024-10-30 04:34] LABS: African American GFR (CKD) >90 (>60 ml/min/1.73 sqM); Anion Gap 8 mmol/L; Blood Urea Nitrogen 10 mg/dL (9-20); Calcium 8.3 mg/dL (8.4-10.2); Carbon Dioxide 21 mmol/L (22-30); Chloride 107 mmol/L (98-107); Glucose 129 mg/dL (74-99); Magnesium 1.7 mg/dL (1.6-2.3); Non-African American GFR(CKD) >90 (>60 ml/min/1.73 sqM); Potassium 4.0 mmol/L (3.5-5.1); Sodium 136 mmol/L (137-145)
[2024-10-30 05:41] LABS: Glucose,Whole Blood 115 mg/dL (70-110)
--- NOTE | 2024-10-30 09:04 | P.PN ---
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 He has a past medical history of diabetes and hyperlipidemia. We have been asked to evaluate the patient for NSTEMI. Patient states that he has been having chest pain when he exerts himself for the past 2 days. It became worse yesterday and he decided to come into the hospital for evaluation. He has been started on heparin drip and found to have elevated troponins. Recommendations for cardiac catheterization have been discussed with the patient and he is agreeable to move forward today. Blood pressure 131/73, heart rate 68, pulse ox 99% on room air. Patient is seen today in the emergency center waiting for a bed on the cardiac stepdown unit. -EKG: Sinus rhythm with T wave inversions in I and aVL -Chest x-ray: No acute process. -Laboratory studies: Troponin 1.07, 1.19, creatinine 0.62, potassium 4.2. CBC unremarkable. -Home cardiac medications: No medications are listed. PROGRESS NOTE: 10/29- Lipid panel showed triglycerides 90.30, cholesterol 106, LDL 60.4, VLDL 18.06. Diagnostic cath showed focal 90% stenosis in the proximal portion of the LAD, circumflex coronary artery shows moderate diffuse disease with multiple segmental lesions, 70% stenosis, there is proximal mid and distal lesion. Patient underwent PCI of mid- LAD. 10/30/24: Patient seen and examined at bedside today. Denies any complaints. Vital signs are stable. WBC 10.66, hemoglobin 12.6, sodium 136, creatinine 0.57 Echocardiogram showed EF 35 to 40%, moderately impaired left ventricular systolic function with segmental wall motion abnormality, mild mitral and tricuspid regurgitation Review Of Systems: Pertinent positives and negatives as discussed in HPI, a complete review of systems was performed and all other systems are negative. Physical examination: Gen: This is a 68-year-old male in no acute distress VS: reviewed HEENT: Head is atraumatic, normocephalic. Pupils equal, round. Sclerae is anicteric. NECK: Supple. No JVD. LUNGS: Clear to auscultation. No wheezes or rhonchi. No intercostal retractions. HEART: Regular rate and rhythm. No murmur. ABDOMEN: Soft No tenderness. EXTREMITIES: No pedal edema. No calf tenderness. NEUROLOGICAL: Patient is awake, alert and oriented x3. Assessment: NSTEMI, S/p PCI of mid LAD Cardiomyopathy, EF 35-40% Diabetes Hyperlipidemia Plan: Dual antiplatelet therapy using aspirin and Brilinta for 12 months Aggressive cholesterol control Continue aspirin 81 mg daily, atorvastatin 80 mg daily, Ticagrelor 90 mg twice daily Patient is stable to be discharged from cardiology standpoint. Patient advised that he can go back to work after 1 week. Dictation was produced using [employer] dictation software. please excuse any grammatical, word or spelling errors. Sia Siddiqui MD PGY-2 IM I saw and evaluated the patient during the islas and critical portions of this encounter, and discussed the case in detail with the resident author of this note, I agree with the Assessment and Plan. Objective - Vital Signs Vital signs: Vital Signs Temp 98.0 F 10/30/24 04:00 Pulse 65 10/30/24 05:00 Resp 18 10/30/24 05:00 BP 113/62 10/30/24 05:00 Pulse Ox 97 10/30/24 05:00 FiO2 Intake & Output 10/29/24 10/29/24 10/30/24 06:59 18:59 06:59 Intake Total 66.333 2421 1039.5 Output Total 950 200 Balance 66.333 1471 839.5 Weight 95.2 kg Intake: IV 1275 890 Sodium Chloride 0.9% 1, 890 000 ml In Empty Bag 1 bag @ 1 ML/KG/HR 89.539 mls/ hr IV .[id number] NHUNG Rx#: [id number] Sodium Chloride 0.9% 1, 525 000 ml In Empty Bag 1 bag @ 75 mls/hr IV .[id number] NHUNG Rx#:[id number] Intake, IV Titration 66.333 149.5 Amount Heparin Sodium,Porcine/ 66.333 149.5 D5w 25,000 unit In Empty Bag 1 bag @ 11.168 UNIT/ KG/HR 10 mls/hr IV .Q24H NHUNG Rx#:[id number] Oral 0 1146 Output: Urine 950 200 Other: Voiding Method Toilet Urinal Urinal Urinal # Voids 1 1 1 - Labs CBC & Chem 7: 10/30/24 04:15 10/30/24 04:15 Labs: Abnormal Lab Results - Last 24 Hours (Table) 10/29/24 10/29/24 10/29/24 Range/Units 03:28 09:57 15:59 WBC (4.50-10.00) 10*3/uL RBC (4.40-5.60) 10*6/uL Hgb (13.0-17.0) g/dL Hct (39.6-50.0) % Sodium (137-145) mmol/L Carbon Dioxide (22-30) mmol/L Creatinine (0.66-1.25) mg/dL Glucose (74-99) mg/dL POC Glucose (mg/dL) 128 H 171 H (70-110) mg/dL Calcium (8.4-10.2) mg/dL HDL Cholesterol 27.50 L (40.00-60.00) mg/dL 10/29/24 10/30/24 10/30/24 Range/Units 20:22 04:15 04:15 WBC 10.66 H (4.50-10.00) 10*3/uL RBC 4.36 L (4.40-5.60) 10*6/uL Hgb 12.6 L (13.0-17.0) g/dL Hct 39.3 L (39.6-50.0) % Sodium 136 L (137-145) mmol/L Carbon Dioxide 21 L (22-30) mmol/L Creatinine 0.57 L (0.66-1.25) mg/dL Glucose 129 H (74-99) mg/dL POC Glucose (mg/dL) 236 H (70-110) mg/dL Calcium 8.3 L (8.4-10.2) mg/dL HDL Cholesterol (40.00-60.00) mg/dL 10/30/24 Range/Units 05:40 WBC (4.50-10.00) 10*3/uL RBC (4.40-5.60) 10*6/uL Hgb (13.0-17.0) g/dL Hct (39.6-50.0) % Sodium (137-145) mmol/L Carbon Dioxide (22-30) mmol/L Creatinine (0.66-1.25) mg/dL Glucose (74-99) mg/dL POC Glucose (mg/dL) 115 H (70-110) mg/dL Calcium (8.4-10.2) mg/dL HDL Cholesterol (40.00-60.00) mg/dL
--- NOTE | 2024-10-30 09:43 | P.DS ---
Providers Date of admission: 10/28/24 06:38 Expected date of discharge: 10/30/24 Attending physician: Darrian Keys Consults: 10/28/24 06:38 Consult Physician Urgent Consulting Provider: Yeison Hernadez Consult Reason/Comments: nstemi Do you want consulting provider notified?: Already Contacted 10/29/24 09:35 Consult Physician Routine Consulting Provider: [facility] Consult Reason/Comments: Post Interventional Patient Do you want consulting provider notified?: Already Contacted Primary care physician: Stated None Hospital Course: 68-year-old male patient with no previous cardiac history and 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 He has a past medical history of diabetes and hyperlipidemia. We have been asked to evaluate the patient for NSTEMI. Patient states that he has been having chest pain when he exerts himself for the past 2 days. It became worse yesterday and he decided to come into the hospital for evaluation. He has been started on heparin drip and found to have elevated troponins. Recommendations for cardiac catheterization have been discussed with the patient and he is agreeable to move forward today. Blood pressure 131/73, heart rate 68, pulse ox 99% on room air. Patient is seen today in the emergency center waiting for a bed on the cardiac stepdown unit. -EKG: Sinus rhythm with T wave inversions in I and aVL -Chest x-ray: No acute process. -Laboratory studies: Troponin 1.07, 1.19, creatinine 0.62, potassium 4.2. CBC unremarkable. -Home cardiac medications: No medications are listed. PROGRESS NOTE: 10/29- Lipid panel showed triglycerides 90.30, cholesterol 106, LDL 60.4, VLDL 18.06. Diagnostic cath showed focal 90% stenosis in the proximal portion of the LAD, circumflex coronary artery shows moderate diffuse disease with multiple segmental lesions, 70% stenosis, there is proximal mid and distal lesion. Patient underwent PCI of mid- LAD. 10/30/24: Patient seen and examined at bedside today. Denies any complaints. Vital signs are stable. WBC 10.66, hemoglobin 12.6, sodium 136, creatinine 0.57 Echocardiogram showed EF 35 to 40%, moderately impaired left ventricular systolic function with segmental wall motion abnormality, mild mitral and tricuspid regurgitation Assessment: NSTEMI, S/p PCI of mid LAD Cardiomyopathy, EF 35-40% Diabetes Hyperlipidemia Plan: Dual antiplatelet therapy using aspirin and Brilinta for 12 months Aggressive cholesterol control Continue aspirin 81 mg daily, atorvastatin 80 mg daily, Ticagrelor 90 mg twice daily Patient is stable to be discharged from cardiology standpoint. Patient advised that he can go back to work after 1 week. Patient Condition at Discharge: Stable Plan - Discharge Summary Discharge Rx Participant: Yes New Discharge Prescriptions: New Aspirin 81 mg PO DAILY tab Ticagrelor [Brilinta] 90 mg PO BID 30 Days #60 tab Atorvastatin [Lipitor] 80 mg PO DAILY 30 Days #30 tab Continue Empagliflozin [Jardiance] 25 mg PO DAILY Insulin Glargine,Hum.rec.anlog [Lantus Solostar Pen] 40 units SQ DAILY Discontinued Atorvastatin [Lipitor] 20 mg PO DAILY Discharge Medication List Empagliflozin [Jardiance] 25 mg PO DAILY 10/28/24 [History] Insulin Glargine,Hum.rec.anlog [Lantus Solostar Pen] 40 units SQ DAILY 10/28/24 [History] Aspirin 81 mg PO DAILY tab 10/30/24 [Rx] Atorvastatin [Lipitor] 80 mg PO DAILY 30 Days #30 tab 10/30/24 [Rx] Ticagrelor [Brilinta] 90 mg PO BID 30 Days #60 tab 10/30/24 [Rx] Follow up Appointment(s)/Referral(s): None,Stated [Primary Care Provider] - 1-2 days Discharge Disposition: HOME SELF-CARE
[2024-10-30 10:37] VITALS: BP 129/72; RESP 15; TEMP 97.9
[2024-10-30 10:52] VITALS: PULSE 78
[2024-10-30 11:01] LABS: Glucose,Whole Blood 124 mg/dL (70-110)
[2024-10-30 11:07] VITALS: BMI 32.8
== END 2024-10-30 11:30 | disposition home or self-care (01) | DRG 322 ==
LOC: EC 03:19 → 3SCARD 06:38 → 2SICU 10-29 09:40
PROVIDERS: ADMIT Hospitalist; ATTEND Hospitalist
PROC: 4A023N7 Measurement of Cardiac Sampling and Pressure, Left Heart, Percutaneous Approach (ICD-10-PCS; 2024-10-28)
PROC: B2111ZZ Fluoroscopy of Multiple Coronary Arteries using Low Osmolar Contrast (ICD-10-PCS; 2024-10-28)
PROC: 027034Z Dilation of Coronary Artery, One Artery with Drug-eluting Intraluminal Device, Percutaneous Approach (ICD-10-PCS; principal; 2024-10-29 07:30)
PROC: B240ZZ3 Ultrasonography of Single Coronary Artery, Intravascular (ICD-10-PCS; 2024-10-29 07:30)
DX: I21.4 Non-ST elevation (NSTEMI) myocardial infarction (principal); I42.9 Cardiomyopathy, unspecified; E11.9 Type 2 diabetes mellitus without complications; I10 Essential (primary) hypertension; E78.5 Hyperlipidemia, unspecified; I25.10 Atherosclerotic heart disease of native coronary artery without angina pectoris; Z79.02 Long term (current) use of antithrombotics/antiplatelets; Z79.82 Long term (current) use of aspirin; Z79.899 Other long term (current) drug therapy
CPT/HCPCS: 36415; 71046; 80048; 80053; 80061; 83036; 83735; 84484; 85025; 85027; 85610; 85730; 93005; 93306; 93458; 96365; 96366; 99291